=== PATIENT | female | born 1985 | race Hispanic/Latino ===

== ENCOUNTER 2022-12-22 16:31 | Outpatient (CLI) | payer BC ==
[2022-12-22 17:31] LABS: Hemoglobin 12.6 g/dL (12.0-15.5); Mean Corpuscular HGB CONC 33.4 g/dL (32.0-36.0); Mean Corpuscular Hemoglobin 29.3 pg (27.0-33.0); Mean Corpuscular Volume 87.7 fl (81.6-98.3); Mean Platelet Volume 11.5 fl (7.4-10.4); Platelet Count 282 10x3/uL (150-450)
[2022-12-22 17:48] LABS: BHCG - Serum Negative (NEGATIVE); Pregs Control Background? CLEAR/WHITE (CLR/WHITE); Pregs Control Bar Appear? YES (CONTROL BAR)
== END 2022-12-22 16:32 | disposition home or self-care (01) ==
LOC: CSHLAB 16:31
PROVIDERS: ATTEND Obstetrics & Gynecology
DX: Z01.812 Encounter for preprocedural laboratory examination (principal); D25.0 Submucous leiomyoma of uterus
CPT/HCPCS: 84703; 85027; 86850; 86900; 86901

== ENCOUNTER 2022-12-24 05:53 | Day surgery (SDC) | payer BC ==
[2022-12-22 17:12] VITALS: BMI 33.0
[2022-12-24] MEDS ORDERED: CeleCOXIB 100 MG CAP ONE (06:23)
[2022-12-24] MEDS ORDERED: Famotidine/PF 20 mg/2ml Vial ONE ×2 (06:24→06:51)
[2022-12-24] MEDS ORDERED: metroNIDAZOLE 500 MG/100 ML BAG ONE ×2 (06:24→07:23)
[2022-12-24] MEDS ORDERED: Gabapentin 300 MG CAP ONE (06:24)
[2022-12-24] MEDS ORDERED: EPINEPHrine 1 MG/ML AMP ONE ×2 (06:34→07:52)
[2022-12-24] MEDS ORDERED: Bupivacaine PF 0.5% 30 ML VIAL ONE (06:35)
[2022-12-24] MEDS ORDERED: SUGAMMADEX SODIUM 200 MG/2 ML VIAL ONE (06:51)
[2022-12-24] MEDS ORDERED: Lidocaine 2% PF 5 ML VIAL ONE (07:04)
[2022-12-24] MEDS ORDERED: Dexamethasone 4 mg/ml Vial ONE (07:04)
[2022-12-24] MEDS ORDERED: PROPOFOL 20 ML ONE (07:04)
[2022-12-24] MEDS ORDERED: Ondansetron PF 4 MG/2 ML Vial ONE (07:04)
[2022-12-24] MEDS ORDERED: fentaNYL 50 mcg/mL 1 mL Vial ONE ×2 (07:04→08:56)
[2022-12-24] MEDS ORDERED: Metoclopramide HCl 10 MG/2 ML VIAL ONE (07:04)
[2022-12-24] MEDS ORDERED: Ketorolac Tromethamine 30 MG/ML VIAL ONE (07:05)
[2022-12-24] MEDS ORDERED: Rocuronium Bromide 10 MG/ML (10ML VIAL) ONE ×2 (07:05→07:51)
[2022-12-24] MEDS ORDERED: CEFAZOLIN 2 GM VIAL ONE (07:23)
[2022-12-24] MEDS ORDERED: Midazolam HCl 2 mg/2 ml Vial ONE (07:26)
[2022-12-24] MEDS ORDERED: Calcium Gluc 4.6 MEQ/10 ML (100 MG/ML) ONE (07:51)
[2022-12-24] MEDS ORDERED: CEFAZOLIN 1 GM VIAL ONE (07:52)
[2022-12-24] MEDS ORDERED: Hydrocortisone Sod Succ/PF 100 mg/2 ml Vial ONE (07:52)
[2022-12-24] MEDS ORDERED: Albuterol HFA (OR) 200 PUFF INH ONE (07:53)
[2022-12-24] MEDS ORDERED: Glycopyrrolate 0.2 MG/ML 5 ML SYRINGE ONE (09:01)
== END 2022-12-24 10:50 | disposition home or self-care (01) ==
LOC: CSHSDC 05:53
PROVIDERS: ATTEND Obstetrics & Gynecology
PROC: 0UB24ZZ Excision of Bilateral Ovaries, Percutaneous Endoscopic Approach (ICD-10-PCS; principal; 2022-12-24)
PROC: 0UT94ZZ Resection of Uterus, Percutaneous Endoscopic Approach (ICD-10-PCS; principal; 2022-12-24)
PROC: 0UB74ZZ Excision of Bilateral Fallopian Tubes, Percutaneous Endoscopic Approach (ICD-10-PCS; principal; 2022-12-24)
DX: D25.0 Submucous leiomyoma of uterus (principal); N72 Inflammatory disease of cervix uteri; N87.9 Dysplasia of cervix uteri, unspecified; N80.03 Adenomyosis of the uterus; N92.0 Excessive and frequent menstruation with regular cycle; N94.6 Dysmenorrhea, unspecified; E03.9 Hypothyroidism, unspecified; K21.9 Gastro-esophageal reflux disease without esophagitis; E66.9 Obesity, unspecified; Z68.33 Body mass index [BMI] 33.0-33.9, adult; Z79.899 Other long term (current) drug therapy
CPT/HCPCS: 88307; C9250; J0171; J0612; J0690; J1100; J1720; J1885; J2001; J2250; J2405; J2704; J2765; J3010; Q9968; S0020; S0028